=== PATIENT | male | born 1975 | race Caucasian/White ===

== ENCOUNTER 2018-12-25 09:17 | Outpatient (CLI) | payer OTHER ==
--- NOTE | 2018-12-25 12:09 | MRI ---
MRI LEFT KNEE: Date: 12/25/18 PROVIDED CLINICAL HISTORY: Left knee pain. FINDINGS: The anterior cruciate ligament, posterior cruciate ligament, medial collateral ligament, and lateral collateral ligamentous complex demonstrate an intact MR appearance, as does the extensor mechanism. The medial and lateral menisci demonstrate no evidence for tear. There is a focal near full thickness articular cartilage defect involving the lateral femoral condyle in its central weightbearing portion. This measures about 5-6 mm in transverse dimension and about 8 mm in AP dimension. There is articular cartilage irregularity involving the posterior aspects of the central weightbearin g portion of the medial femoral condyle with evidence for cartilage delamination at the cartilage bon e interface. No cartilage displacement is seen. There is subjacent marrow edema. Also involving the medial femoral condyle in its central weightbearing portion more anteriorly and me dially is a partial thickness delaminating articular cartilage defect measuring about 7 mm in transve rse dimension. It is not well depicted on the sagittal images for measurement of its AP dimension. There is near full thickness articular cartilage loss involving majority of the trochlea of the femur . There is articular cartilage irregularity with full thickness articular cartilage fissuring involvi ng the medial patellar facet. There is a partial thickness articular cartilage fissure involving the median ridge. There is a large knee joint effusion. No focal concerning regional marrow or muscular signal abnormality is apparent. IMPRESSION: 1. Extensive tricompartmental articular chondrosis as described. 2. Large knee joint effusion. POS: OFF
== END 2018-12-25 09:18 | disposition home or self-care (01) ==
LOC: TBSIIMAG 09:17
PROVIDERS: ATTEND Orthopaedic Surgery
DX: M25.462 Effusion, left knee (principal); M25.862 Other specified joint disorders, left knee

== ENCOUNTER 2019-01-18 09:48 | Day surgery (SDC) | payer OTHER ==
[2019-01-15 14:01] VITALS: BMI 21.9
[2019-01-18] MEDS ORDERED: PROPOFOL 200 MG/20 ML VIAL ONE (10:06)
[2019-01-18] MEDS ORDERED: Ketorolac Tromethamine 30 MG/ML VIAL ONE (10:06)
[2019-01-18] MEDS ORDERED: Lidocaine 1% PF 5 ML VIAL ONE (10:06)
[2019-01-18] MEDS ORDERED: Ondansetron PF 4 MG/2 ML Vial ONE (10:06)
[2019-01-18 10:47] LABS: #Basophils 0.1 thou/uL (0.0-0.2); #Eosinphils 0.3 thou/uL (0.0-0.7); #Lymphocytes 1.8 thou/uL (1.20-3.40); #Monocytes 0.4 thou/uL (0.11-0.59); #Neutrophils 2.8 thou/uL (1.40-6.50); %Basophils 1.6 % (0.0-1.0); %Lymphocytes 32.6 % (21.0-51.0); %Monocytes 7.8 % (0.0-10.0); Hemoglobin 14.8 g/dL (14.0-18.0); Mean Corpuscular HGB CONC 33.5 g/dL (32.0-36.0); Mean Corpuscular Hemoglobin 30.1 pg (27.0-31.0); Mean Corpuscular Volume 89.7 fL (78.0-98.0); Mean Platelet Volume 8.6 fL (7.4-10.4); Platelet Count 200 thou/uL (130-400); RBC Distribution Width 11.7 % (11.5-14.5); Red Blood Cell (RBC) Count 4.92 mill/uL (4.70-6.10); White Blood Cell (WBC) Count 5.4 thou/uL (4.8-10.8)
[2019-01-18] MEDS ORDERED: PROPOFOL 20 ML ONE (10:48)
[2019-01-18 10:57] LABS: Anion Gap 13 mmol/L (10-20); BUN (Urea Nitrogen) 16 mg/dL (8.9-20.6); Calc. Creatinine Clearance 115 mL/min (70-130); Calcium 9.6 mg/dL (7.8-10.44); Carbon Dioxide 25 mmol/L (22-29); Chloride 104 mmol/L (98-107); Estimated GFR-MDRD 77; Glucose 80 mg/dL (70-105); Potassium 4.7 mmol/L (3.5-5.1); Sodium 137 mmol/L (136-145)
[2019-01-18] MEDS ORDERED: Fentanyl 100 MCG/2 ML VIAL ONE (12:04)
[2019-01-18] MEDS ORDERED: Bupivacaine HCl 0.5%/Epinephrine 1:200,000/PF 30 ml Vial ONE (13:21)
[2019-01-18] MEDS ORDERED: Ropivacaine 0.2% HCl/PF (40 MG/20 ML VIAL) ONE (13:21)
[2019-01-18] MEDS ORDERED: Lidocaine 2% w/Epinephrine 1:200K 20 ML VIAL ONE (13:23)
--- NOTE | 2019-01-19 12:57 | OP ---
DATE OF PROCEDURE: 01/18/2019 PREOPERATIVE DIAGNOSES: Left knee chronic effusion secondary to multiple cartilaginous loose bodies and cartilage loss from the femur and trochlea. POSTOPERATIVE DIAGNOSES: 1. Multiple cartilaginous loose bodies. 2. Grade 4 changes to the trochlea as well as the medial femoral condyle. PROCEDURES PERFORMED: Left knee arthroscopy with debridement and shaving of unstable chondral flaps as well as removal of multiple small cartilaginous loose bodies. SHAREPOINT CONSULTANT: None. ESTIMATED BLOOD LOSS: Minimal. COMPLICATIONS: None. ANESTHESIA: He did have a general anesthetic as well as local knee block. DISPOSITION: He went to recovery room in stable condition. INDICATIONS: A 43-year-old male, who has been having problems with knee swelling and pain for months. He has failed nonoperative treatment. At this time, he opted to have surgery. DESCRIPTION OF PROCEDURE: After all appropriate consent forms were explained and signed, he was taken back to the operative room and at this time, he was given general anesthetic. Once the level of anesthesia was appropriate, tourniquet was placed on the left side and the leg was placed in arthroscopic leg denney. The limb was then prepped and draped in standard surgical fashion. Limb was exsanguinated and the tourniquet was taken up. Inferolateral portal was established. Scope was placed into the knee joint. Copious amount of fluid was evacuated. A needle localization technique was then used to make a medial working portal. Diagnostic arthroscopy commenced in the notch. The ACL and PCL were probed and found to be intact. The medial compartment showed area of the medial femoral condyle towards the notch and flexion about 90 degrees going through full extension, had some unstable chondral flaps and more into extension. We went, the larger of this area encompassed. All unstable chondral flaps were debrided with a mechanical shaver. Medial meniscus was probed, found to be intact. The tibial plateau overall was in good condition as well. There were multiple small areas of small pieces of cartilage underneath the meniscus that had some loose bodies as well. At this time, we turned our attention to lateral compartment. The femur, tibia, and meniscus were in good condition. Again, there were some small loose bodies, which were removed. At this time, we swept through the gutters, medial gutter was in good condition. The lateral gutter had a large compilation of small chondral pieces sitting and these were all removed with the shaver. The patellofemoral joint was then evaluated. The patella overall was in good condition. However, the trochlea and some significant cartilage loss. The unstable cartilage flaps were again debrided back to a stable base. There were other multiple free cartilaginous pieces noted in the suprapatellar pouch. Again, all these were removed with a suction shaver device. We then went through the knee one more time, making sure there were no more loose pieces of cartilage. We were satisfied, we had completely evacuated the knee. The scope was removed. The knee was drained. Portals were closed with simple nylon stitch. A bulky sterile dressing was applied and tourniquet was let down. Toes pinked up nicely. The patient was awakened he was taken to recovery room in stable condition. All counts were correct at the end of the case and he did receive preoperative IV antibiotics. Job ID: [id number]
--- NOTE | 2019-01-20 18:46 | EKG ---
Test Reason : PREOP Blood Pressure : / mmHG Vent. Rate : 077 BPM Atrial Rate : 077 BPM P-R Int : 162 ms QRS Dur : 094 ms QT Int : 382 ms P-R-T Axes : 066 067 062 degrees QTc Int : 432 ms Normal sinus rhythm Normal ECG Confirmed by DR. Willy LANGFORD ([id number]) on 01/20/2019 6:45:55 PM Referred By: IERO Confirmed By:DR. Willy LANGFORD
== END 2019-01-18 14:45 | disposition home or self-care (01) ==
LOC: SDC 09:48
PROVIDERS: ATTEND Orthopaedic Surgery
PROC: 0SBD4ZZ Excision of Left Knee Joint, Percutaneous Endoscopic Approach (ICD-10-PCS; principal; 2019-01-18)
DX: M23.42 Loose body in knee, left knee (principal); M23.8X2 Other internal derangements of left knee; G43.909 Migraine, unspecified, not intractable, without status migrainosus; Z79.899 Other long term (current) drug therapy
CPT/HCPCS: 80048; 85025; 93005; 93010; J0131; J0690; J1885; J2001; J2405; J2704; J3010

== ENCOUNTER → 2019-01-28 | Day surgery (SDC) | payer OTHER ==
[~2019-01-28] MED LIST: Benzocaine 20% Spray 60 ML CAN ONE; Bupivacaine 0.25% HCL 30 ML VIAL ONE; Bupivacaine PF 0.5% 30 ML VIAL ONE; Dexamethasone 20 MG/5 ML VIAL ONE; Fentanyl 100 MCG/2 ML VIAL ONE; HYDROcodone/Acetaminophen 5/325 mg Tablet ONE; Lidocaine 1% PF 5 ML VIAL ONE; Meperidine HCl/PF 25 MG/ML VIAL ONE; Ondansetron PF 4 MG/2 ML Vial ONE; PROPOFOL 200 MG/20 ML VIAL ONE; Tranexamic Acid 1,000 MG/10 ML VIAL ONE
[2019-01-28 18:22] LABS: #Basophils 0.1 thou/uL (0.0-0.2); #Eosinphils 0.3 thou/uL (0.0-0.7); #Lymphocytes 1.5 thou/uL (1.20-3.40); #Monocytes 0.5 thou/uL (0.11-0.59); #Neutrophils 4.8 thou/uL (1.40-6.50); %Basophils 1.1 % (0.0-1.0); %Eosinophils 3.7 % (0.0-10.0); %Lymphocytes 20.5 % (21.0-51.0); %Monocytes 7.3 % (0.0-10.0); %Neutrophils 67.4 % (42.0-75.0); Hemoglobin 12.5 g/dL (14.0-18.0); Mean Corpuscular HGB CONC 33.9 g/dL (32.0-36.0); Mean Corpuscular Volume 88.7 fL (78.0-98.0); Mean Platelet Volume 7.8 fL (7.4-10.4); Platelet Count 229 thou/uL (130-400); RBC Distribution Width 11.3 % (11.5-14.5); Red Blood Cell (RBC) Count 4.18 mill/uL (4.70-6.10); White Blood Cell (WBC) Count 7.1 thou/uL (4.8-10.8)
[2019-01-28 18:24] LABS: Prothrombin Time 13.6 SEC (12.0-14.7)
--- NOTE | 2019-01-29 02:14 | OP ---
DATE OF PROCEDURE: 01/28/2019 PREOPERATIVE DIAGNOSIS: Left knee hemarthrosis, status post previous knee arthroscopy. POSTOPERATIVE DIAGNOSIS: Left knee hemarthrosis, status post previous knee arthroscopy. PROCEDURE PERFORMED: Left knee diagnostic arthroscopy with debridement of clot as well as coagulation of any visible bleeding. SALES ORDER SPECIALIST: None. BLOOD LOSS: 50 mL. COMPLICATIONS: None. DISPOSITION: Went to recovery room in stable condition. ANESTHESIA: He had a general anesthetic. INDICATIONS: This is a 43-year-old male who came in on Friday after a knee arthroscopy to get his sutures removed and he was found to have a large hemarthrosis. This was aspirated in the clinic and within just slightly over 24 hours, it reaccumulated. At this time, it was felt he had something bleeding in his knee that required looking into the knee. DESCRIPTION OF PROCEDURE: After all appropriate consent forms were explained and signed, Mr. Espinoza was taken to the operating room at this time was given a general anesthetic. Tourniquet was placed on the left thigh and the leg was then placed in an arthroscopic leg denney. It was then prepped and draped in a standard surgical fashion. The limb was exsanguinated and the tourniquet was taken to 250 mmHg. Previous incision was used and the scope was placed into the knee joint. Copious amount of dark blood was evacuated. We then circulated arthroscopic fluid through the knee to clear this up somewhat. We then reestablished our medial portal through the previous incision and introduced the shaver to remove clot, so we could visualize the structures of the knee joint. Medial and lateral compartments were entered. There was nothing abnormal noted from the previous scope. There was nothing done in the medial lateral compartment during that procedure either. We got all the copious amount of clot out of the suprapatellar pouch and the gutters and the fat pad. At this time, there was nothing obvious that one would suggest as bleeding. At this time after approximately 10 minutes, the tourniquet was then let down. Once the tourniquet was let down, the SERFAS energy probe was introduced into the knee joint. There was some brisk bleeding noted around the lateral portal, not as much around the medial portal and some significant bleeding around the base of the anterior cruciate ligament/inner meniscal ligament area. The SERFAS energy was used to coagulate this brisk venous bleeding. Once this was done, there was no more obvious visible bleeding other than just a small ooze. The lateral gutter was entered. No sign of any brisk bleeding was noted. Along the medial gutter, there was no sign of any bleeding noted. In the suprapatellar pouch, there were a couple of areas with some bleeding and these were coagulated as well. We then evacuated all the bloody fluid from the knee joint, stuck the camera back in dry in the suprapatellar pouch to make sure we did not notice any pulling of any arterial blood and none was noted. We then filled the knee up again, went through the knee, and again other than what I would consider to be normal bleeding and somebody who just had a previous surgery a week ago, there was no abnormal bleeding noted. At this time, we felt comfortable that this procedure would come to an end. The scope was removed. The knee was drained. We then closed our portals with some mattress sutures to give the portals some extra strength rather than just simple sutures. Again, at this time prior to closing the lateral portal, the cannula was placed into the knee to make sure there was no more blood in there and there was none that came out through the portal cannula. The lateral portal was then closed. A bulky sterile dressing was then applied that included 4x4s, ABD pads, Kerlix rolls, cast padding, and Gregory wrap. A knee immobilizer was then placed onto the knee. Patient was then awakened. He was taken to recovery room in stable condition. All counts were correct at the end of the case and he did receive preoperative IV antibiotics. Postoperatively, we will give the patient a gram of tranexamic acid (TXA) in the recovery room to help with postop bleeding as well. Job ID: [id number]
== END ==
LOC: SDC 16:13
PROVIDERS: ATTEND Orthopaedic Surgery
PROC: 0SBD4ZZ Excision of Left Knee Joint, Percutaneous Endoscopic Approach (ICD-10-PCS; principal; 2019-01-28)
DX: M25.062 Hemarthrosis, left knee (principal); Z98.890 Other specified postprocedural states
CPT/HCPCS: 36415; 85025; 85610; J0690; J1100; J2001; J2175; J2405; J2704; J3010; S0020